=== PATIENT | female | born 1995 | race Hispanic/Latino ===

== ENCOUNTER 2022-06-07 19:42 | Inpatient (IN) | payer MEDICAID, OTHER ==
[~2022-06-07] VITALS: Ht 154.9 cm; Wt 64.5 kg
[2022-06-07] MEDS ORDERED: 0.9%NACL 1000ML 2,500 ML IV ONE (20:30)
[2022-06-07] MEDS ORDERED: ACETAMINOPHEN 500 MG TABLET PO ONE (20:30)
[2022-06-07 20:33] LABS: BASOPHILS % (AUTO) 0.1 % (0.0-5.0); HEMATOCRIT 33.8 % (36-48); LYMPHOCYTES % (AUTO) 2.2 % (21.0-51.0); MEAN CORPUSCULAR HEMOGLOBIN 24.4 pg (27.0-33.0); MEAN CORPUSCULAR VOLUME 76.5 fL (79-99); MONOCYTES % (AUTO) 7.5 % (3.0-13.0); NEUTROPHILS % (AUTO) 89.3 % (40.0-77.0); PLATELET COUNT (AUTO) 242 K/uL (130-400); RED BLOOD CELL COUNT(AUTO) 4.42 MIL/uL (4.00-5.50); RED CELL DISTRIBUTION WIDTH 16.4 % (11.0-15.5)
[2022-06-07 20:43] LABS: APPEARANCE,URINE TURBID (CLEAR); BILIRUBIN,URINE NEGATIVE (NEGATIVE); COLOR,URINE YELLOW (YELLOW); GLUCOSE, URINE (UA) 30 mg/dL (NEGATIVE); KETONES,URINE 5 mg/dL (NEGATIVE); LEUKOCYTE ESTERASE ,URINE 500 Leu/uL (NEGATIVE); NITRATE,URINE 1+ (NEGATIVE); OCCULT BLOOD,URINE SMALL (NEGATIVE); PROTEIN,URINE 300 mg/dL (NEGATIVE); UROBILINOGEN,URINE 0.2 mg/dL (0.2-1.0)
[2022-06-07 20:53] LABS: BACTERIA,URINE MANY /HPF (None Seen); MUCUS,URINE RARE LPF (None Seen); RBC,URINE 26-50 /HPF (0-1); SQUAMOUS EPITHELIAL CELL,UR MANY /HPF (0-2); WBC,URINE TNTC /HPF (0-1)
[2022-06-07 21:06] LABS: ALBUMIN 2.5 g/dL (3.5-5.0); CREATININE 2.5 mg/dL (0.5-1.5); TOTAL PROTEIN, SERUM 7.4 g/dL (6.0-8.3)
[2022-06-07 21:08] LABS: B-TYPE NATRIURETIC PEPTIDE 13 pg/mL (0-100)
[2022-06-07 21:09] LABS: POTASSIUM 2.8 mmol/L (3.5-5.1)
[2022-06-07 21:15] LABS: AMPHET/METH SCREEN,URINE NEGATIVE (NEGATIVE); BARBITURATE SCREEN, URINE NEGATIVE (NEGATIVE); BENZODIAZEPINES SCREEN,URINE NEGATIVE (NEGATIVE); CANNABINOID SCREEN,URINE NEGATIVE (NEGATIVE); COCAINE SCREEN,URINE POSITIVE (NEGATIVE); OPIATE SCREEN,URINE NEGATIVE (NEGATIVE); PHENCYCLIDINE SCREEN,URINE NEGATIVE (NEGATIVE)
[2022-06-07] MEDS ORDERED: KCL 20 MEQ ERTAB PO ONE (21:30)
[2022-06-07] MEDS: POTASSIUM CHLORIDE 10MEQ/100ML 100 ML IV SCH (21:37)
[2022-06-07] MEDS ORDERED: CEFTRIAXONE 1G VIAL IVP ONE (22:00)
[2022-06-07] MEDS ORDERED: HALOPERIDOL INJ 5 MG/ML VIAL IV SCH (22:00)
[2022-06-08] VITALS (18 sets, daily range): BP systolic 86–128; BP diastolic 48–73
[2022-06-08] MEDS ORDERED: CEFTRIAXONE 1G VIAL IV SCH
[2022-06-08] MEDS ORDERED: LACTATED RINGERS IV ONE
[2022-06-08] MEDS ORDERED: ACETAMINOPHEN 325 MG TAB PO PRN ×2
[2022-06-08] MEDS ORDERED: PHARMACY COMMUNICATION MISC PRN (02:00)
[2022-06-08] MEDS: CHLORDIAZEPOXIDE HCL 25 MG CAP PO SCH ×2 (03:33→09:26)
[2022-06-08] MEDS: ONDANSETRON 4MG INJ IV PRN ×2 (03:33→23:08)
[2022-06-08] MEDS: MORPHINE 2 MG SYG IV PRN (06:34)
[2022-06-08] MEDS ORDERED: FAMOTIDINE 20MG TAB PO SCH (09:00)
[2022-06-08] MEDS: FOLIC ACID 5 MG/ML VIAL IV SCH ×2 (09:00→09:44)
[2022-06-08] MEDS: HEPARIN 5,000 UNIT VIAL SQ SCH ×2 (09:00→14:00)
[2022-06-08] MEDS ORDERED: THIAMINE HCL 100 MG/ML 2ML VIAL IVP SCH ×2 (09:00→21:00)
[2022-06-08] MEDS: Vitamin B Complex/Vit C/Folic Acid PO SCH (09:00)
[2022-06-08 09:19] LABS: BASOPHILS % (AUTO) 0.2 % (0.0-5.0); HEMATOCRIT 27.2 % (36-48); LYMPHOCYTES % (AUTO) 3.2 % (21.0-51.0); MEAN CORPUSCULAR HEMOGLOBIN 24.6 pg (27.0-33.0); MEAN CORPUSCULAR HGB CONC 30.5 g/dL (32.0-36.0); MEAN CORPUSCULAR VOLUME 80.5 fL (79-99); MONOCYTES % (AUTO) 6.5 % (3.0-13.0); PLATELET COUNT (AUTO) 204 K/uL (130-400); RED BLOOD CELL COUNT(AUTO) 3.38 MIL/uL (4.00-5.50); WHITE BLOOD COUNT (AUTO) 14.8 K/uL (4.8-10.8)
[2022-06-08 09:28] LABS: INR 1.01 (0.85-1.15)
[2022-06-08 09:30] LABS: PARTIAL THROMBOPLASTIN TIME 32.8 SEC (26.3-35.5)
[2022-06-08] MEDS ORDERED: Vitamin B Complex/Vit C/Folic Acid PO SCH (09:30)
[2022-06-08 10:01] LABS: CARBON DIOXIDE 18 mmol/L (21-32); CHLORIDE 107 mmol/L (101-111); CREATININE 1.4 mg/dL (0.5-1.5); GLOMERULAR FILTR. RATE CALC 48 mL/min (>60); GLUCOSE,RANDOM 102 mg/dL (70-105); POTASSIUM 3.4 mmol/L (3.5-5.1); SODIUM SERUM 139 mmol/L (136-145); UREA NITROGEN, BLOOD 27 mg/dL (7-18)
[2022-06-08 10:05] LABS: ALBUMIN 1.7 g/dL (3.5-5.0); ASPARTATE AMINOTRANSFERASE 13 U/L (10-37); TOTAL PROTEIN, SERUM 5.5 g/dL (6.0-8.3)
[2022-06-08 10:06] LABS: ALANINE AMINOTRANSFERASE < 6 U/L (12-78)
[2022-06-08] MEDS: PANTOPRAZOLE 40 MG/VIAL IVP SCH (10:51)
[2022-06-08 11:03] LABS: ERYTHROCYTE SEDIMENTATION RATE 74 MM/HR (0-20)
[2022-06-08] MEDS ORDERED: ZOSYN 3.375GM +NS 50ML IV SCH (13:30)
[2022-06-08] MEDS: MAGNESIUM 2GM PREMIX 50ML 50 ML IV PRN (15:22)
[2022-06-08] MEDS: LACTATED RINGERS 1000ML 1,000 ML IV SCH ×2 (16:54)
[2022-06-08] MEDS: DOXYCYCLINE 100MG+NS 250ML IV SCH (17:34)
[2022-06-08 17:45] LABS: CREATININE,URINE RANDOM 234 mg/dL (30-135); SODIUM,URINE RANDOM 50 mmol/l (40-220)
[2022-06-08] MEDS ORDERED: NOREPINEPHRIN 4MG/NS 250ML 250 ML IV ONE (20:39)
[2022-06-08] MEDS ORDERED: NOREPINEPHRIN 4MG/NS 250ML 250 ML IV PRN (21:00)
[2022-06-08] MEDS ORDERED: VANCOMYCIN PROTOCOL PER PHARMACY IV SCH (21:00)
[2022-06-08] MEDS: VANCOMYCIN 1G/250ML KIT 250 ML IV SCH (21:54)
[2022-06-08] MEDS: MEROPENEM 1 GM VIAL IVP SCH (21:54)
[2022-06-08] MEDS: MORPHINE 4 MG SYG IV PRN (23:09)
[2022-06-08 23:50] LABS: BASOPHILS % (AUTO) 0.2 % (0.0-5.0); EOSINOPHILS % (AUTO) 0.1 % (0.0-8.0); HEMATOCRIT 28.2 % (36-48); MEAN CORPUSCULAR HEMOGLOBIN 24.1 pg (27.0-33.0); MEAN CORPUSCULAR HGB CONC 31.2 g/dL (32.0-36.0); MEAN CORPUSCULAR VOLUME 77.3 fL (79-99); MONOCYTES % (AUTO) 9.2 % (3.0-13.0); NEUTROPHILS % (AUTO) 83.5 % (40.0-77.0); PLATELET COUNT (AUTO) 184 K/uL (130-400); RED BLOOD CELL COUNT(AUTO) 3.65 MIL/uL (4.00-5.50); RED CELL DISTRIBUTION WIDTH 17.2 % (11.0-15.5); WHITE BLOOD COUNT (AUTO) 16.4 K/uL (4.8-10.8)
[2022-06-09] VITALS (55 sets, daily range): BP systolic 87–126; BP diastolic 44–78
[2022-06-09 00:03] LABS: CARBON DIOXIDE 18 mmol/L (21-32); CHLORIDE 110 mmol/L (101-111); CREATININE 1.2 mg/dL (0.5-1.5); GLOMERULAR FILTR. RATE CALC 57 mL/min (>60); GLUCOSE,RANDOM 94 mg/dL (70-105); POTASSIUM 3.4 mmol/L (3.5-5.1); SODIUM SERUM 139 mmol/L (136-145); UREA NITROGEN, BLOOD 21 mg/dL (7-18)
[2022-06-09 00:04] LABS: ALBUMIN 1.5 g/dL (3.5-5.0); ASPARTATE AMINOTRANSFERASE 16 U/L (10-37); CREATINE KINASE, TOTAL 12 U/L (21-232); TOTAL PROTEIN, SERUM 5.2 g/dL (6.0-8.3)
[2022-06-09 00:05] LABS: ALANINE AMINOTRANSFERASE < 6 U/L (12-78)
[2022-06-09] MEDS: POTASSIUM CHLORIDE 10MEQ/100ML 100 ML IV SCH ×2 (00:53→02:51)
[2022-06-09] MEDS ORDERED: LACTULOSE 20 GM/30 ML UDCUP PO ONE (02:30)
[2022-06-09] MEDS: MORPHINE 4 MG SYG IV PRN ×3 (02:51→23:59)
[2022-06-09] MEDS: DOXYCYCLINE 100MG+NS 250ML IV SCH ×2 (05:13→16:46)
[2022-06-09 05:33] LABS: % IRON SATURATION 6.8 % (22-44)
[2022-06-09 07:13] LABS: BASOPHILS % (AUTO) 0.2 % (0.0-5.0); EOSINOPHILS % (AUTO) 0.1 % (0.0-8.0); HEMATOCRIT 26.3 % (36-48); LYMPHOCYTES % (AUTO) 9.7 % (21.0-51.0); MEAN CORPUSCULAR HEMOGLOBIN 24.1 pg (27.0-33.0); MEAN CORPUSCULAR HGB CONC 31.6 g/dL (32.0-36.0); MEAN CORPUSCULAR VOLUME 76.5 fL (79-99); MONOCYTES % (AUTO) 13.2 % (3.0-13.0); NEUTROPHILS % (AUTO) 76.2 % (40.0-77.0); PLATELET COUNT (AUTO) 246 K/uL (130-400); RED BLOOD CELL COUNT(AUTO) 3.44 MIL/uL (4.00-5.50); RED CELL DISTRIBUTION WIDTH 17.2 % (11.0-15.5); WHITE BLOOD COUNT (AUTO) 10.8 K/uL (4.8-10.8)
[2022-06-09 07:30] LABS: CREATININE 1.1 mg/dL (0.5-1.5); MAGNESIUM 1.8 mg/dL (1.80-2.40); POTASSIUM 3.4 mmol/L (3.5-5.1)
[2022-06-09 07:39] LABS: CRP QUANTITATIVE 329.8 mg/L (0.00-9.0)
[2022-06-09] MEDS ORDERED: IRON SUCROSE COMPLEX 200 MG in 0.9%NACL 50ML 50 ML IV SCH (09:00)
[2022-06-09] MEDS: 0.9%NACL 1000ML 1,000 ML IV SCH (09:08)
[2022-06-09] MEDS: PANTOPRAZOLE 40 MG/VIAL IVP SCH (09:09)
[2022-06-09] MEDS: MEROPENEM 1 GM VIAL IVP SCH ×3 (09:09→21:23)
[2022-06-09] MEDS: IRON SUCROSE COMPLEX 100 MG/5 ML VIAL IVP SCH (09:09)
[2022-06-09] MEDS: Vitamin B Complex/Vit C/Folic Acid PO SCH (09:10)
[2022-06-09] MEDS: MORPHINE 2 MG SYG IV PRN ×2 (10:22→14:34)
[2022-06-09] MEDS ORDERED: GUAIFENESIN-DM 200/20 MG 10 ML PO PRN (11:00)
[2022-06-09] MEDS: MAGNESIUM 2GM PREMIX 50ML 50 ML IV PRN (15:16)
[2022-06-09] MEDS ORDERED: SODIUM CHLORIDE 3% FOR INHALATION 4 ML/AMP VIAL.NEB IH ONE (16:23)
[2022-06-09] MEDS: MIDODRINE HCL 5 MG TABLET PO SCH ×2 (16:48→21:23)
[2022-06-09] MEDS: VANCOMYCIN 1G/250ML KIT 250 ML IV SCH (21:49)
[2022-06-10] VITALS (15 sets, daily range): BP systolic 99–124; BP diastolic 54–84
[2022-06-10] MEDS: 0.9%NACL 1000ML 1,000 ML IV SCH (01:06)
[2022-06-10 04:04] LABS: BASOPHILS % (AUTO) 0.3 % (0.0-5.0); EOSINOPHILS % (AUTO) 1.2 % (0.0-8.0); HEMATOCRIT 26.5 % (36-48); LYMPHOCYTES % (AUTO) 14.5 % (21.0-51.0); MEAN CORPUSCULAR HEMOGLOBIN 24.1 pg (27.0-33.0); MEAN CORPUSCULAR HGB CONC 30.6 g/dL (32.0-36.0); MEAN CORPUSCULAR VOLUME 78.9 fL (79-99); MONOCYTES % (AUTO) 14.1 % (3.0-13.0); NEUTROPHILS % (AUTO) 68.3 % (40.0-77.0); PLATELET COUNT (AUTO) 250 K/uL (130-400); RED BLOOD CELL COUNT(AUTO) 3.36 MIL/uL (4.00-5.50); RED CELL DISTRIBUTION WIDTH 17.4 % (11.0-15.5); WHITE BLOOD COUNT (AUTO) 7.4 K/uL (4.8-10.8)
[2022-06-10 04:21] LABS: ALBUMIN 1.4 g/dL (3.5-5.0); ASPARTATE AMINOTRANSFERASE 14 U/L (10-37); CARBON DIOXIDE 19 mmol/L (21-32); CHLORIDE 109 mmol/L (101-111); GLOMERULAR FILTR. RATE CALC 70 mL/min (>60); GLUCOSE,RANDOM 87 mg/dL (70-105); SODIUM SERUM 138 mmol/L (136-145); TOTAL PROTEIN, SERUM 4.9 g/dL (6.0-8.3); UREA NITROGEN, BLOOD 10 mg/dL (7-18)
[2022-06-10 04:31] LABS: ALANINE AMINOTRANSFERASE < 6 U/L (12-78)
[2022-06-10] MEDS: DOXYCYCLINE 100MG+NS 250ML IV SCH (05:09)
[2022-06-10] MEDS: POTASSIUM CHLORIDE 10MEQ/100ML 100 ML IV SCH (05:10)
[2022-06-10] MEDS: MORPHINE 4 MG SYG IV PRN ×5 (05:10→22:07)
[2022-06-10 07:27] LABS: ABG BASE EXCESS -2.7 mmol/L (-2.0-3.0); ABG OXYGEN SATURATION 88.6 % (95.0-99.0); ABG PCO2 38 mmHg (32-45)
[2022-06-10] MEDS ORDERED: KCL 20 MEQ ERTAB PO ONE (08:28)
[2022-06-10] MEDS: PANTOPRAZOLE 40 MG/VIAL IVP SCH (08:38)
[2022-06-10] MEDS: ONDANSETRON 4MG INJ IV PRN ×2 (08:38→20:34)
[2022-06-10] MEDS: MIDODRINE HCL 5 MG TABLET PO SCH ×3 (08:39→21:00)
[2022-06-10] MEDS: Vitamin B Complex/Vit C/Folic Acid PO SCH (08:39)
[2022-06-10] MEDS: CHLORDIAZEPOXIDE HCL 25 MG CAP PO PRN (08:39)
[2022-06-10] MEDS: IRON SUCROSE COMPLEX 100 MG/5 ML VIAL IVP SCH (08:40)
[2022-06-10] MEDS ORDERED: CEFTRIAXONE 1G VIAL IVP SCH (10:00)
[2022-06-10] MEDS ORDERED: LIDOCAINE HCL-MPF 1% 2ML VIAL IV PRN (11:00)
[2022-06-10] MEDS ORDERED: MAGNESIUM 2GM PREMIX 50ML 50 ML IV PRN (11:00)
[2022-06-10] MEDS ORDERED: POTASSIUM CHLORIDE 20MEQ/100ML 100 ML IV PRN (11:00)
[2022-06-10] MEDS ORDERED: POTASSIUM CHLORIDE 10% ELIXIR 20 MEQ/15 ML UDCUP PO PRN (11:00)
[2022-06-10] MEDS: KCL 20 MEQ ERTAB PO PRN (12:58)
[2022-06-10] MEDS ORDERED: THIAMINE HCL 100 MG TABLET PO ONE (13:00)
[2022-06-10] MEDS ORDERED: FUROSEMIDE 20MG VIAL IV ONE (13:30)
[2022-06-10] MEDS ORDERED: ENOXAPARIN SODIUM 40 MG/0.4 ML SYRINGE SQ ONE (13:30)
[2022-06-10] MEDS ORDERED: IOHEXOL 350 MG/ML 100ML INFUS..BTL IV ONE (17:58)
[2022-06-11] VITALS (7 sets, daily range): BP systolic 105–123; BP diastolic 62–99
[2022-06-11] MEDS: MORPHINE 4 MG SYG IV PRN ×3 (02:40→23:35)
[2022-06-11 06:19] LABS: HEMATOCRIT 24.8 % (36-48); MEAN CORPUSCULAR HEMOGLOBIN 23.8 pg (27.0-33.0); MEAN CORPUSCULAR HGB CONC 30.6 g/dL (32.0-36.0); MEAN CORPUSCULAR VOLUME 77.7 fL (79-99); RED BLOOD CELL COUNT(AUTO) 3.19 MIL/uL (4.00-5.50); RED CELL DISTRIBUTION WIDTH 16.9 % (11.0-15.5); WHITE BLOOD COUNT (AUTO) 7.3 K/uL (4.8-10.8)
[2022-06-11 06:38] LABS: ALBUMIN 1.6 g/dL (3.5-5.0); CREATININE 0.8 mg/dL (0.5-1.5); MAGNESIUM 1.5 mg/dL (1.80-2.40); PHOSPHORUS 4.3 mg/dL (2.5-4.9); TOTAL PROTEIN, SERUM 5.2 g/dL (6.0-8.3)
[2022-06-11 06:43] LABS: POTASSIUM 2.7 mmol/L (3.5-5.1)
[2022-06-11 07:00] LABS: INR 0.99 (0.85-1.15); PROTHROMBIN TIME 10.8 SEC (9.6-11.6)
[2022-06-11] MEDS: PANTOPRAZOLE 40 MG/VIAL IVP SCH (10:01)
[2022-06-11] MEDS: IRON SUCROSE COMPLEX 100 MG/5 ML VIAL IVP SCH (10:02)
[2022-06-11] MEDS: THIAMINE HCL 100 MG TABLET PO SCH (10:10)
[2022-06-11] MEDS: Vitamin B Complex/Vit C/Folic Acid PO SCH (10:10)
[2022-06-11] MEDS: CEFTRIAXONE 2GM VIAL IVP SCH (10:10)
[2022-06-11] MEDS: MIDODRINE HCL 5 MG TABLET PO SCH ×3 (10:10→21:32)
[2022-06-11] MEDS: ENOXAPARIN SODIUM 40 MG/0.4 ML SYRINGE SQ SCH (10:11)
[2022-06-11] MEDS: MAGNESIUM 2GM PREMIX 50ML 50 ML IV PRN (10:13)
[2022-06-11] MEDS: KCL 20 MEQ ERTAB PO PRN ×4 (10:30→15:05)
[2022-06-11] MEDS: ONDANSETRON 4MG INJ IV PRN (10:31)
[2022-06-11] MEDS ORDERED: METOCLOPRAMIDE 10 MG/2 ML VIAL IVP PRN (13:30)
[2022-06-11] MEDS ORDERED: MIDODRINE HCL 5 MG TABLET ONE (14:53)
[2022-06-11] MEDS ORDERED: POTASSIUM CHLORIDE 10MEQ/100ML 100 ML IV ONE (14:59)
[2022-06-11] MEDS ORDERED: KCL 20 MEQ ERTAB PO ONE (14:59)
[2022-06-11] MEDS ORDERED: KETOROLAC 15MG/ML VIAL (15MG/ML) ONE (17:46)
[2022-06-11] MEDS: KETOROLAC 15MG/ML VIAL (15MG/ML) IV PRN (17:49)
[2022-06-11] MEDS ORDERED: LEVOFLOXACIN 500 MG TABLET PO SCH (21:00)
[2022-06-12] MEDS: KETOROLAC 15MG/ML VIAL (15MG/ML) IV PRN (02:33)
[2022-06-12] MEDS: CHLORDIAZEPOXIDE HCL 25 MG CAP PO PRN (03:00)
[2022-06-12 03:55] VITALS: BP 124/87
[2022-06-12 05:17] LABS: HEMATOCRIT 25.2 % (36-48); MEAN CORPUSCULAR HEMOGLOBIN 24.5 pg (27.0-33.0); MEAN CORPUSCULAR HGB CONC 31.3 g/dL (32.0-36.0); MEAN CORPUSCULAR VOLUME 78.3 fL (79-99); RED BLOOD CELL COUNT(AUTO) 3.22 MIL/uL (4.00-5.50); WHITE BLOOD COUNT (AUTO) 7.3 K/uL (4.8-10.8)
[2022-06-12 05:30] LABS: CREATININE 0.7 mg/dL (0.5-1.5); POTASSIUM 3.3 mmol/L (3.5-5.1)
[2022-06-12] MEDS: KCL 20 MEQ ERTAB PO PRN ×2 (06:50→08:42)
[2022-06-12] MEDS ORDERED: POTASSIUM CHLORIDE 10% ELIXIR 20 MEQ/15 ML UDCUP PO PRN (07:00)
[2022-06-12] MEDS ORDERED: KCL 20 MEQ ERTAB PO PRN (07:00)
[2022-06-12 08:00] VITALS: BP 129/46
[2022-06-12] MEDS: CEFTRIAXONE 2GM VIAL IVP SCH (08:40)
[2022-06-12] MEDS: IRON SUCROSE COMPLEX 100 MG/5 ML VIAL IVP SCH (08:40)
[2022-06-12] MEDS: THIAMINE HCL 100 MG TABLET PO SCH (08:41)
[2022-06-12] MEDS: Vitamin B Complex/Vit C/Folic Acid PO SCH (08:41)
[2022-06-12] MEDS: PANTOPRAZOLE 40 MG/VIAL IVP SCH (08:41)
[2022-06-12] MEDS: MIDODRINE HCL 5 MG TABLET PO SCH (08:41)
[2022-06-12] MEDS: MORPHINE 4 MG SYG IV PRN (08:42)
[2022-06-12] MEDS: ENOXAPARIN SODIUM 40 MG/0.4 ML SYRINGE SQ SCH (08:44)
[2022-06-12] MEDS ORDERED: THIA100T91 PO (10:48)
[2022-06-12] MEDS ORDERED: Folic Acid/Vitamin B Comp W-C PO (10:48)
[2022-06-12] MEDS ORDERED: ONDA-104 PO (10:50)
[2022-06-12 12:00] VITALS: BP 117/65
[2022-06-12] MEDS ORDERED: LEVO-70 PO (14:29)
== END 2022-06-12 17:05 | disposition home or self-care (01) | DRG 871 ==
LOC: EDH 19:42 → EDHIP 19:43 → 3CH 06-08 01:53 → 2CH 06-08 21:40 → 3BH 06-10 13:35
PROVIDERS: ADMIT Hospitalist; ATTEND Hospitalist
DX: A41.9 Sepsis, unspecified organism (principal); E43 Unspecified severe protein-calorie malnutrition; J18.9 Pneumonia, unspecified organism; Z20.822 Contact with and (suspected) exposure to COVID-19; R65.21 Severe sepsis with septic shock; N17.0 Acute kidney failure with tubular necrosis; N39.0 Urinary tract infection, site not specified; J98.11 Atelectasis; E87.6 Hypokalemia; F14.10 Cocaine abuse, uncomplicated; B96.20 Unspecified Escherichia coli [E. coli] as the cause of diseases classified elsewhere; D50.9 Iron deficiency anemia, unspecified; E66.9 Obesity, unspecified; E83.42 Hypomagnesemia; E86.0 Dehydration; F10.229 Alcohol dependence with intoxication, unspecified; K59.00 Constipation, unspecified; Z56.0 Unemployment, unspecified; Z79.899 Other long term (current) drug therapy; Z68.26 Body mass index [BMI] 26.0-26.9, adult
CPT/HCPCS: 36415; 36600; 71045; 71250; 71270; 74176; 76770; 80048; 80053; 80202; 80305; 81001; 82330; 82550; 82570; 82728; 82803; 82948; 83540; 83550; 83605; 83615; 83735; 83880; 83935; 84100; 84132; 84145; 84300; 84703; 85025; 85027; 85378; 85610; 85651; 85730; 86140; 86701; 86850; 86900; 86901; 87040; 87077; 87088; 87186; 87390; 87635; 87804; 93005; 93306; 93356; 93970; 99291; C9113; C9803; G0378; J0696; J1630; J1644; J1650; J1756; J1885; J1940; J2185; J2270; J2405; J2543; J3370; J3411; J3475; J3480; J3490; J7030; J7120; Q9967

== ENCOUNTER 2023-01-08 22:03 | Emergency (ER) | payer OTHER ==
[~2023-01-08] VITALS: Ht 154.9 cm; Wt 61.7 kg
[~2023-01-08 22:03] MED LIST: Folic Acid/Vitamin B Comp W-C PO; LEVO-70 PO; ONDA-104 PO; THIA100T91 PO
[2023-01-08 22:06] VITALS: BP 129/52
[2023-01-08] MEDS ORDERED: ACETAMINOPHEN 500 MG TABLET PO ONE (22:30)
[2023-01-08] MEDS ORDERED: IBUPROFEN 600 MG TABLET PO ONE (22:30)
[2023-01-08] MEDS ORDERED: IBUP-2070 PO (23:30)
[2023-01-08] MEDS ORDERED: AMOX1TAB16 PO (23:30)
[2023-01-08] MEDS ORDERED: PSEU120T62 PO (23:30)
[2023-01-08] MEDS ORDERED: PHEN118L19 PO (23:30)
== END 2023-01-08 23:34 | disposition home or self-care (01) ==
LOC: EDH 22:03
DX: J01.90 Acute sinusitis, unspecified (principal); Z20.822 Contact with and (suspected) exposure to COVID-19; Z79.899 Other long term (current) drug therapy; Z98.890 Other specified postprocedural states
CPT/HCPCS: 99283; 87635; 87880; 87804 ×2; C9803

== ENCOUNTER 2025-03-04 22:41 | Emergency (ER) | payer SELFPAY ==
[~2025-03-04] VITALS: Ht 154.9 cm; Wt 61.2 kg
[~2025-03-04 22:41] MED LIST changes: +AMOX1TAB16 PO; +IBUP-1492 PO; +PHEN118L19 PO; +PSEU120T62 PO
--- NOTE | 2025-03-04 23:02 | ERN ---
ED Note History of Present Illness Stated Complaint: LUMP LEFT BREAST Chief Complaint: Breast Problem Time Seen by MD: 22:56 Dictation: This is a 29-year-old female who presented to the emergency room complaining of a lump in her left breast for the past 2 years. Apparently she was supposed to follow up with her primary care physician but missed all the appointments. She started experiencing little pain and hence she came into the ER for further evaluation. No fever chills or rigors no nipple inversion or drainage no r edness of skin changes. Patient indicated that she is currently on her menstrual cycle Temperature 98 pulse 69 respirations 20 blood pressure 114/38 with a pulse oximetry of 98% on room air Chronic medical problems include PTSD, D&C in abortions. Allergies: Coded Allergies: No Known Drug Allergies (Unverified Allergy, Unknown, 06/07/22) Home Meds Active Scripts Amoxicillin/Potassium Clav (Amox Tr-K Clv 875-125 mg Tab) 1 Each Tablet, 1 EACH PO BID for 10 Days, #20 TAB Prov:CARMINE GILL 01/08/23 Ibuprofen (Ibuprofen) 600 Mg Tablet, 600 MG PO Q6H PRN for PAIN, #15 TAB Prov:CARMINE GILL 01/08/23 Phenylephrine/Diphenhydramine (Dimetapp Cold & Congest Liquid) 118 Ml Liquid, 10 ML PO TID for 5 Days, #120 ML Prov:CARMINE GILL 01/08/23 Pseudoephedrine HCl (Sudafed 12 Hour) 120 Mg Tablet.er, 120 MG PO BID for 5 Days, #10 TAB Prov:CARMINE GILL 01/08/23 Levofloxacin (Levofloxacin) 500 Mg Tablet, 500 MG PO Q24H, #5 TAB 0 Refills Prov:TOMMIE LANDEROS 06/12/22 Ondansetron HCl (Ondansetron HCl) 4 Mg Tablet, 4 MG PO Q6HPRN PRN for NAUSEA/VOMITING, #20 TAB 0 Refills Prov:TOMMIE LANDEROS 06/12/22 Thiamine HCl (Vitamin B-1) 100 Mg Tablet, 300 MG PO DAILY, #30 TAB 0 Refills Prov:TOMMIE LANDEROS 06/12/22 [Folic Acid/Vitamin B Comp W-C] 1 CAP TAB No Conflict Check, 1 CAP PO DAILY, #30 0 Refills Prov:TOMMIE LANDEROS AGPCJAZMÍN 06/12/22 Past Medical History Past Medical History: Anemia, Other Additional Past Medical Hx: PTSD Surgical History: Other Surgical History Other: D&C, Family History: Negative Social History: ETOH, Lives with family RN Note Reviewed/Agreed w/PFSH: Yes Review of System Dictation Constitutional: Negative for fever,chills, and weight loss Eyes: Negative for injury, pain,redness, and discharge ENT: Negative for injury,pain or swelling Cardiovascular: Negative for chest pain, palpitations, and edema Respiratory: Negative for shortness of breath, cough, and wheezing, Abdomen/GI: Negative for abdominal pain, nausea, vomiting, diarrhea, and constipation Back: Negative for injury and pain : Negative for injury, bleeding and discharge MS/Extremity: Negative for injury and deformity Skin: Negative for rash, and discoloration positive for lump in the left breast for the past 2 year positive for pain Neuro: Negative for headache, weakness, numbness, tingling, and seizure Psych: Negative for suicide ideation, homicidal ideation, and hallucinations Initial Vital Sign VS Vital Signs Date Time Temp Pulse Resp B/P (MAP) Pulse Ox O2 Delivery O2 Flow Rate FiO2 03/04/25 22:42 98.1 69 20 114/38 98 Room Air Physical Exam Dictation General: awake, alert, NAD Head/Face: Normocephalic, atraumatic Eyes: PERRL, EOMI, vision at baseline ENT: oral cavity clear, TMs clear, no signs of infection Neck: Trachea midline, supple, no nuchal rigidity Cardiovascular: RRR, normal S1/S2, No MRGs, no JVD Respiratory: CTAB, no respiratory distress, No rales or wheezes Abdomen: Soft, non-tender, non-distended, normal bowel sounds, no guarding or rebound. Skin: Warm, dry, normal turgor, no rash Breast exam-left breast visual inspection appears normal no nipple drainage or eversion. On palpation mild lumpy bumpy feeling in the left breast above the nipple location. I did not see any wounds or drainage MS/Extremity: Pulses equal, no cyanosis, neurovascular intact, FROM Neuro: COAx4, GCS 15, strength 5/5, CN 2-12 intact, normal cerebellar exam, normal gait, Psych: Normal behavior, mood, and affect normal Extremities-trace edema without any palpable cords, Homans sign is negative Results (Laboratory/Radiology) Laboratory/Radiology Laboratory Tests Test 03/04/25 23:06 03/04/25 23:38 White Blood Count 5.3 K/uL (4.8-10.8) Red Blood Count 4.04 MIL/uL (4.00-5.50) Hemoglobin 11.3 g/dL (12.0-16.0) L Hematocrit 35.3 % (36-48) L Mean Corpuscular Volume 87.4 fL (79-99) Mean Corpuscular Hemoglobin 28.0 pg (27.0-33.0) Mean Corpuscular Hemoglobin Concent 32.0 g/dL (32.0-36.0) Red Cell Distribution Width 13.5 % (11.0-15.5) Platelet Count 295 K/uL (130-400) Mean Platelet Volume 9.5 fL (7.5-10.5) Immature Granulocyte % (Auto) 0.2 % (0-1) Neutrophils (%) (Auto) 49.6 % (40.0-77.0) Lymphocytes (%) (Auto) 40.9 % (21.0-51.0) Monocytes (%) (Auto) 9.3 % (3.0-13.0) Eosinophils (%) (Auto) 0.0 % (0.0-8.0) Basophils (%) (Auto) 0.0 % (0.0-5.0) Neutrophils # (Auto) 2.6 K/uL (1.8-7.7) Lymphocytes # (Auto) 2.2 K/uL (1.0-4.8) Monocytes # (Auto) 0.5 K/uL (0.1-1.0) Eosinophils # (Auto) 0.00 K/uL (0.00-0.70) Basophils # (Auto) 0.00 K/uL (0.00-0.20) Absolute Immature Granulocyte (auto 0.01 K/uL (0-1) Nucleated Red Blood Cells 0.0 % (0.0-0.19) Sodium Level 137 mmol/L (136-145) Potassium Level 3.7 mmol/L (3.5-5.1) Chloride Level 102 mmol/L (101-111) Carbon Dioxide Level 27 mmol/L (21-32) Blood Urea Nitrogen 10 mg/dL (7-18) Creatinine 0.7 mg/dL (0.5-1.0) Glomerular Filtration Rate Calc 119 mL/min (>90) Random Glucose 98 mg/dL (70-105) Total Calcium 8.6 mg/dL (8.5-10.1) Urine Color LIGHT-YELLOW (YELLOW) Urine Appearance CLEAR (CLEAR) Urine pH 5.5 (5.0-8.0) Urine Specific Reading 1.019 (1.001-1.031) Urine Protein NEGATIVE mg/dL (NEGATIVE) Urine Glucose (UA) NEGATIVE mg/dL (NEGATIVE) Urine Ketones NEGATIVE mg/dL (NEGATIVE) Urine Occult Blood NEGATIVE (NEGATIVE) Urine Nitrate NEGATIVE (NEGATIVE) Urine Bilirubin NEGATIVE mg/dL (NEGATIVE) Urine Urobilinogen 0.2 mg/dL (0.2-1.0) Urine Leukocyte Esterase 500 Toni/uL (NEGATIVE) H Urine RBC 2-5 /HPF (0-1) H Urine WBC 26-50 /HPF (0-1) H Urine Squamous Epithelial Cells FEW /HPF (0-2) Urine Bacteria RARE /HPF (None Seen) Labs Reviewed?: Yes ED Course ED Course Orders Procedure Category Date Status Time Cbc With Differential LAB 03/04/25 Complete 22:58 Basic Metabolic Panel LAB 03/04/25 Complete 22:58 Urinalysis Profile LAB 03/04/25 Complete 22:58 Ketorolac PHA 03/05/25 In Process Tromethamine 30mg/Ml 00:00 Culture Urine HARVEY 03/04/25 In Process 23:46 ,Urine Test LAB 03/04/25 Logged 23:52 Current Medications Medications (Trade) Dose Ordered Sig/Salvatore Route PRN Reason Start Time Stop Time Status Last Admin Dose Admin Ketorolac Tromethamine (toRADol) 30 mg ONCE ONCE IM 03/05/25 00:00 03/05/25 00:01 Vital Signs Date Time Temp Pulse Resp B/P (MAP) Pulse Ox O2 Delivery O2 Flow Rate FiO2 03/04/25 22:42 98.1 69 20 114/38 98 Room Air We will perform diagnostic labs, and administer medications according to the patient's complaint. Once the results are available, will review and personally interpreted the labs to rule out any acute life-threatening emergency the trach require immediate intervention and treatment. I will then re-evaluate the patient after treatment and diagnostic exams have return to determine whether the patient requires any further testing, can safely be discharged home or need further admission to hospital for additional treatment and evaluation. Labs reviewed CBC is with a normal limits in fact hemoglobin went up to 11 0.3 from 2021. BNP 7 is with a normal limits. Urinalysis is pending Patient is currently on her menstrual cycle I have explained to her that mammograms and any breast workup which are elective can not be pursued in the emergency room at midnight and that she needs to reestablish with her primary care physician for further evaluation. She had an appointment with ROGER Pat that patient did not keep. I instructed her to call Dr. Connors is off his back and get reestablished Medical Decision Making MDM Differential diagnosis: Adenoma of the breast, fibrocystic disease, abscess, malignancy Rationale: Tests considered and ordered secondary to shared decision making include: Previous outside records reviewed: Old ER visits. Risk of complication and/or morbidity or mortality of patient management: None Medications-Per medication reconciliation Need for hospitalization: Patient does not meet criteria for hospitalization. Need for emergency major/minor surgery: No There are no social concerns with this patient. Prescription drug management Prescriptions will include symptomatic care Patient's prior external medical records from other ER visits were reviewed by me as indicated. Prior testing and results from previous visits were reviewed. Prior tests were taken into account with medical decision making and resource utilization, independent historian/historians were used to obtain complete medical history. I independently interpreted the test that were performed, results were reviewed by me and considered findings on radiology if ordered. Medical management and examination interpretation discussions were had by me with other qualified healthcare professionals as indicated for the patient's care. Problem List Problem List: (1) Lump of breast, left (2) Cocaine abuse DX & DISP Disposition: Discharge Departure Impression: Primary Impression: Lump of breast, left Additional Impression: Cocaine abuse Condition: Stable Additional Instructions: Patient and the caregiver have been informed of all the diagnostic tests and the imaging conducted during the today's visit to the emergency room and has verbalized understanding of the results I have personally reviewed and interpreted all diagnostic exams performed here in the ER today as well as the vital signs documented by the nursing staff. The patient is now being discharged to home and should follow up with the primary care physician or the specialist as directed by the ER staff. Follow-up with primary care provider in 1 to 2 days. Take medications as dire cted here in the emergency room. Okay to continue home medications unless otherwise discussed during your visit in the emergency room today. Return to your nearest emergency room if symptoms worsen or if there is no improvement. Call 911 if you need immediate assistance. Take Tylenol or Motrin [id number] as needed and if no contraindications are present. Increase oral hydration. A wound culture or urine culture was ordered here in the emergency room department please follow-up with primary care provider and advise them to get repeat ports from our facility. If you had any Jelani wrap/splints that were applied here, please do not remove them until you see your primary care or specialty. Referrals: SELF,REFERRAL (PCP) TAMERA KEMP MD Mar 04, 2025 23:01
[2025-03-04 23:13] LABS: IMMATURE GRANULOCYTE ABSOLUTE 0.01 K/uL (0-1); NUCLEATED RED BLOOD CELLS 0.0 % (0.0-0.19); PLATELET COUNT (AUTO) 295 K/uL (130-400); RED BLOOD CELL COUNT(AUTO) 4.04 MIL/uL (4.00-5.50); RED CELL DISTRIBUTION WIDTH 13.5 % (11.0-15.5); WHITE BLOOD COUNT (AUTO) 5.3 K/uL (4.8-10.8)
[2025-03-04 23:25] LABS: CREATININE 0.7 mg/dL (0.5-1.0); GLOMERULAR FILTR. RATE CALC 119.0 mL/min (>90); GLUCOSE,RANDOM 98.0 mg/dL (70-105); SODIUM SERUM 137.0 mmol/L (136-145); UREA NITROGEN, BLOOD 10.0 mg/dL (7-18)
[2025-03-04 23:46] LABS: ADD UA MICROSCOPIC YES; APPEARANCE,URINE CLEAR (CLEAR); GLUCOSE, URINE (UA) NEGATIVE (NEGATIVE); LEUKOCYTE ESTERASE ,URINE 500 Leu/uL (NEGATIVE); NITRATE,URINE NEGATIVE (NEGATIVE); OCCULT BLOOD,URINE NEGATIVE (NEGATIVE)
[2025-03-04 23:48] LABS: SQUAMOUS EPITHELIAL CELL,UR FEW /HPF (0-2)
[2025-03-05] VITALS: BP 112/57; PULSE 60; RESP 16; TEMP 97.6; O2SAT 99
== END 2025-03-05 00:06 | disposition home or self-care (01) ==
LOC: EDH 22:41
DX: N63.20 Unspecified lump in the left breast, unspecified quadrant (principal); F14.10 Cocaine abuse, uncomplicated; Z79.899 Other long term (current) drug therapy; Z98.890 Other specified postprocedural states
CPT/HCPCS: 99283; 80048; 85025; 87086; 81001; 36415; 96372; J1885